=== PATIENT | female | born 1995 | race Two or more races ===

== ENCOUNTER 2025-03-26 12:35 | Emergency (ER) | payer BC ==
[2025-03-26] MEDS: Ibuprofen 600 MG Tab PO ONE (13:16)
== END 2025-03-26 13:40 | disposition home or self-care (01) ==
LOC: FB.ED 12:35
DX: S41.152A Open bite of left upper arm, initial encounter (principal); W54.0XXA Bitten by dog, initial encounter
CPT/HCPCS: 99283; A9270-GY